=== PATIENT | female | born 1945 | race Caucasian/White ===

== ENCOUNTER 2024-07-15 10:24 | Day surgery (SDC) | payer BC, MEDICARE ==
[2024-07-15] MEDS: Lactated Ringers 1,000 ML IV SCH (10:40)
[2024-07-15] MEDS ORDERED: Propofol 200 MG/20 ML SDV ONE (11:37)
[2024-07-15] MEDS ORDERED: fentaNYL 100 MCG/2 ML SDV ONE (11:37)
== END 2024-07-15 13:18 | disposition home or self-care (01) ==
LOC: VM.SDS 10:24
PROVIDERS: ATTEND Surgery
DX: Z12.11 Encounter for screening for malignant neoplasm of colon (principal); R19.5 Other fecal abnormalities; K57.30 Diverticulosis of large intestine without perforation or abscess without bleeding; E78.5 Hyperlipidemia, unspecified; Z79.899 Other long term (current) drug therapy
CPT/HCPCS: 00811; J2704; J3010; J7120